=== PATIENT | male | born 1945 | race Caucasian/White ===

== ENCOUNTER → 2016-12-22 | Outpatient (CLI) | payer MEDICARE, OTHER ==
[2016-12-22 11:17] LABS: ANION GAP 9 (5-19); BLOOD UREA NITROGEN 22 mg/dL (7-20); CALCIUM 9.1 mg/dL (8.4-10.2); CARBON DIOXIDE 23 mmol/L (22-30); CHLORIDE 107 mmol/L (98-107); CREATININE RESULT 1.26 mg/dL (0.52-1.25); GLUCOSE 93 mg/dL (75-110); POTASSIUM 5.3 mmol/L (3.6-5.0); SODIUM 138.7 mmol/L (137-145)
== END ==
LOC: OD 10:00
PROVIDERS: ATTEND Internal Medicine Cardiovascular Disease
DX: E74.9 Disorder of carbohydrate metabolism, unspecified (principal); E78.00 Pure hypercholesterolemia, unspecified; I12.9 Hypertensive chronic kidney disease with stage 1 through stage 4 chronic kidney disease, or unspecified chronic kidney disease; N18.2 Chronic kidney disease, stage 2 (mild); J44.9 Chronic obstructive pulmonary disease, unspecified; R73.09 Other abnormal glucose
CPT/HCPCS: 36415; 80048; 80061; 83036

== ENCOUNTER 2017-09-19 09:12 | Day surgery (SDC) | payer MEDICARE, OTHER ==
--- NOTE | 2017-08-29 13:58 | EKG REPORT ---
SEVERITY:- NORMAL ECG - SINUS RHYTHM : Confirmed by: Carlo Zamora MD 29-Aug-2017 13:57:38
[~2017-09-19 09:12] MED LIST: ACETAMINOPHEN 325 MG TABLET PO PRN; LIDOCAINE 0.5% INJ-PF (5 MG/ML) 50 ML SDV SUBCUT PRN; NORMAL SALINE 1000 ML (RENAL PATIENTS) IV PRN
[2017-09-19] MEDS ORDERED: MIDAZOLAM 2 MG/2 ML INJ ONE (11:45)
[2017-09-19] MEDS ORDERED: PROPOFOL INJ 200 MG/20 ML VIAL IV ONE ×2 (11:46→12:47)
[2017-09-19] MEDS ORDERED: PROMETHAZINE HCL INJ 25 MG/1 ML VIAL IV PRN ×2 (12:00)
[2017-09-19] MEDS ORDERED: OXYCODONE-ACETAMINOPHEN 5-325 MG TABLET PO PRN ×2 (12:00)
[2017-09-19] MEDS ORDERED: MEPERIDINE HCL/PF INJ 25 MG/1 ML DISP.SYRIN IV PRN (12:00)
[2017-09-19] MEDS ORDERED: ONDANSETRON HCL INJ/PF 4 MG/2 ML SDV IV PRN (12:00)
[2017-09-19] MEDS ORDERED: MORPHINE SULFATE 10 MG/ML INJ IV PRN (12:00)
[2017-09-19] MEDS ORDERED: FENTANYL CITRATE INJ/PF 100 MCG/2 ML AMPUL IV PRN ×3 (12:00)
[2017-09-19] MEDS ORDERED: DIPHENHYDRAMINE HCL 50 MG/ML VIAL IV PRN (12:00)
--- NOTE | 2017-09-19 13:03 | Discharge Summary ---
Discharge Summary (SDC) - Discharge Final Diagnosis: 1. 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 Multiple colon polyps Date of Surgery: 09/19/17 Discharge Date: 09/19/17 Condition: Good Treatment or Instructions: [address] [address] POST ENDOSCOPY DISCHARGE INSTRUCTIONS 1. Diet: Start clear liquids that a regular diet as tolerated. 2. Resume all preoperative medications. All oral anticoagulants and aspirins can be resumed 24 hours after procedure. 3. If a polypectomy was performed some bleeding per rectum may occur. This should stop within 3 days. If not, please contact the office. 4. If you had a colonoscopy you may experience some bloating and delayed return of normal bowel function for several days, your regular bowel movement pattern should resume within a week. 5. Please contact [facility] at to make an appointment with Dr. Youngblood for 1 to 3 weeks following procedure. 6. If you have any questions or concerns regarding your care,treatment plan or follow up, please contact our office. 7. Per clinical guidelines we recommend you undergo a repeat colonoscopy in _ three years. Referrals: IRINEO THOMAS MD [Primary Care Provider] - Discharge Diet: As Tolerated Discharge Activity: Activity As Tolerated Home Care Assistance: None Needed Report the Following to Your Physician Immediately: Shortness of Breath, Increase in Pain, Fever over 101 Degrees
--- NOTE | 2017-09-19 13:10 | Operative Report ---
Operative Report DATE OF SURGERY: 09/19/17 PREOPERATIVE DIAGNOSIS: 1. History of colon polyps. 2. Strong family history of gastric malignancy POSTOPERATIVE DIAGNOSIS: Same with 1. 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 2. Multiple colonic polyps OPERATION: 1. Esophagogastroduodenoscopy with biopsies the upper esophagus. 2. Total colonoscopy to cecum photodocumentation. 3. Hot snare Polypectomy 5 left colon polyps. 4. Cold forceps biopsy of polyp left colon SURGEON: JAYDEN GLASS ANESTHESIA: LMAC TISSUE REMOVED OR ALTERED: Biopsies and polyps COMPLICATIONS: None ESTIMATED BLOOD LOSS: Scant INTRAOPERATIVE FINDINGS: See below PROCEDURE: Patient was taken to the main operating LMAC anesthesia was induced. He was placed in semirecumbent position oral mouthpiece inserted, surgical plan and timeout conducted. The flexible adult upper endoscope was advanced through the oropharynx, down the esophagus through the stomach into the duodenum. This was an excellent study, with no evidence of pain gastric contents. The first and second portions of the duodenum were normal. The scope was brought back to the pylorus which was normal. The stomach was grossly normal. There was no evidence of bleeding, polyp, stricture, or gastritis. Scope was retroflexed in the stomach looking at the GE junction which is at approximately 38 cm from the incisor. There was no hiatal hernia. The scope was brought back to the GE junction. The GE junction from the esophageal side looked normal. Photos were taken. The remainder the esophagus was unremarkable without varix, polyp, tumor or stricture. Of note there were 2 patches of what appeared to be ectopic gastric mucosa at approximately 18 cm from the incisor. Photos were taken and a sample biopsy of a bleeding was minimal. Scope was withdrawn the patient's oropharynx. He tolerated procedure well. The patient was placed in the left lateral decubitus position with knees to chest. A perianal examination was performed. There were no masses. There was no visible or palpable anorectal pathology. Sphincter tone was felt to be normal. The flexible adult colonoscope was advanced through the anal rectal canal, all the way to the cecum. Utilization of the cecum was achieved and the ileocecal valve, the appendiceal orifice and transillumination of the anterior abdominal wall. This was an excellent study on the well-prepped bowel. Some residual amount of green yellow flaky stool which irrigated clear without difficulty. The colonoscope was withdrawn slowly and methodically checked and the mucosa carefully. There was no evidence of tumor, stricture, bleeding . There was no evidence of diverticuloses. In the left colon from about 80 cm to approximately 30 cm or multiple small pedunculated polyps. 5 of these polyps were removed with a hot snare device, retrieved separately but eventually submitted all in one container left colon polyps. Polyps were removed with a hot snare device on medium heat strength. Cautery sites at the amputation site looks satisfactory. A 6 polyp was removed in the sigmoid colon with the cold forceps device and submitted with the other specimens. Bleeding was minimal. The scope was slowly withdrawn through the anal rectal canal. Complete visualization of the rectum was achieved with photodocumentation. The scope was withdrawn to the patient's anus. The patient tolerated the procedure well and was taken to the recovery area in stable condition. Per surveillance guidelines, patient will be due for follow-up colonoscopy in 3 years, or sooner if symptoms develop.
[2017-09-19 14:37] VITALS: BP 153/84
== END 2017-09-19 14:33 | disposition home or self-care (01) ==
LOC: END 09:12
PROVIDERS: ATTEND Surgery
DX: Z12.11 Encounter for screening for malignant neoplasm of colon (principal); D12.5 Benign neoplasm of sigmoid colon; K22.8 Other specified diseases of esophagus; Z86.010 Personal history of colon polyps; Z80.0 Family history of malignant neoplasm of digestive organs; I11.0 Hypertensive heart disease with heart failure; I50.9 Heart failure, unspecified; J44.9 Chronic obstructive pulmonary disease, unspecified; F17.210 Nicotine dependence, cigarettes, uncomplicated; Z79.899 Other long term (current) drug therapy; Z79.1 Long term (current) use of non-steroidal anti-inflammatories (NSAID); Z79.51 Long term (current) use of inhaled steroids
CPT/HCPCS: 43239; 45385; 93005; 36415; 84132; 88305 ×2; 93010; J2250; J2704; 45380; 813

== ENCOUNTER → 2018-02-26 | Outpatient (CLI) | payer MEDICARE, OTHER ==
[2018-02-26 15:18] LABS: ALANINE AMINOTRANSFERASE 30 U/L (21-72); ALBUMIN 3.9 g/dL (3.5-5.0); ALKALINE PHOSPHATASE 55 U/L (38-126); ANION GAP 9 (5-19); ASPARTATE AMINO TRANSFERASE 19 U/L (17-59); BILIRUBIN,DIRECT 0.3 mg/dL (0.0-0.4); BILIRUBIN,TOTAL 0.5 mg/dL (0.2-1.3); BLOOD UREA NITROGEN 32 mg/dL (7-20); CARBON DIOXIDE 23 mmol/L (22-30); CHLORIDE 108 mmol/L (98-107); GLUCOSE 99 mg/dL (75-110); POTASSIUM 5.2 mmol/L (3.6-5.0); SODIUM 140.2 mmol/L (137-145); TOTAL PROTEIN 6.8 g/dL (6.3-8.2)
== END ==
LOC: OD 14:21
PROVIDERS: ATTEND Family Medicine
DX: I50.32 Chronic diastolic (congestive) heart failure (principal); R79.9 Abnormal finding of blood chemistry, unspecified
CPT/HCPCS: 36415; 80053

== ENCOUNTER → 2018-03-11 | Outpatient (CLI) | payer MEDICARE, OTHER ==
--- NOTE | 2018-03-11 23:21 | EKG REPORT ---
SEVERITY:- NORMAL ECG - SINUS RHYTHM : Confirmed by: Tomasa Zapata 11-Mar-2018 23:20:30
== END ==
LOC: OD 12:33
PROVIDERS: ATTEND Psychiatry & Neurology Psychiatry
DX: F33.0 Major depressive disorder, recurrent, mild (principal)
CPT/HCPCS: 93005; 93010

== ENCOUNTER → 2018-08-28 | Outpatient (CLI) | payer MEDICARE, OTHER ==
[2018-08-28 16:28] LABS: ALANINE AMINOTRANSFERASE 61 U/L (21-72); ALBUMIN 4.3 g/dL (3.5-5.0); ALKALINE PHOSPHATASE 112 U/L (38-126); ANION GAP 9 (5-19); ASPARTATE AMINO TRANSFERASE 44 U/L (17-59); BILIRUBIN,DIRECT 0.4 mg/dL (0.0-0.4); BILIRUBIN,TOTAL 0.8 mg/dL (0.2-1.3); BLOOD UREA NITROGEN 22 mg/dL (7-20); CALCIUM 9.8 mg/dL (8.4-10.2); CARBON DIOXIDE 25 mmol/L (22-30); CHLORIDE 104 mmol/L (98-107); CHOLESTEROL 282.27 mg/dL (0-200); GLUCOSE 78 mg/dL (75-110); POTASSIUM 4.5 mmol/L (3.6-5.0); SODIUM 138.4 mmol/L (137-145); TOTAL PROTEIN 7.3 g/dL (6.3-8.2); TRIGLYCERIDES 113 mg/dL (<150)
[2018-08-28 16:40] LABS: DIRECT LDL 151 mg/dL (<100)
== END ==
LOC: OD 15:19
PROVIDERS: ATTEND Family Medicine
DX: N18.4 Chronic kidney disease, stage 4 (severe) (principal); I50.32 Chronic diastolic (congestive) heart failure; E78.2 Mixed hyperlipidemia
CPT/HCPCS: 36415; 80053; 80061